=== PATIENT | female | born 1945 | race Caucasian/White ===

== ENCOUNTER 2017-10-27 11:41 | Emergency (ER) | payer MEDICARE ==
[~2017-10-27 11:41] MED LIST: ESTR0.62 VAGINAL; FLUO.25%O EACH EYE; OMEG100010 PO; REST0.05 EACH EYE; SYNT112T PO; [UNRECOGNIZED DRUG - CODE] EACH EYE
[2017-10-27 11:44] VITALS: BP 135/80; PULSE 88; RESP 14; TEMP 97.9; O2SAT 99
--- NOTE | 2017-10-27 12:23 | RADRPT ---
EXAM DATE/TIME: 10/27/2017 12:15 [facility] COMPARISON: No previous studies available for comparison. INDICATIONS : Right wrist pain; fell in a store today. MEDICAL HISTORY : None. SURGICAL HISTORY : None. ENCOUNTER: Initial ACUITY: 1 day PAIN SCORE: 4/10 LOCATION: Right wrist. FINDINGS: Three view examination of the right wrist demonstrates no soft tissue swelling, dislocation, or fract ure. The carpal bones are in normal alignment. The joint spaces are maintained. Bony mineralizatio n is normal. CONCLUSION: No acute fracture. Kevon Ag MD on October 27, 2017 at 12:20 Board Certified Radiologist. This report was verified electronically.
--- NOTE | 2017-10-27 12:51 | RADRPT ---
EXAM DATE/TIME: 10/27/2017 12:22 [facility] COMPARISON: No previous studies available for comparison. INDICATIONS : Right shoulder pain; fell in a store today over a rug. MEDICAL HISTORY : None. SURGICAL HISTORY : None. ENCOUNTER: Initial ACUITY: 1 day PAIN SCORE: 6/10 LOCATION: Right shoulder. FINDINGS: Multiple view examination of the right shoulder demonstrates no evidence of fracture or dislocation. The glenohumeral and acromioclavicular joints are anatomic. There is normal range of motion between internal and external rotation. Bony mineralization is normal. CONCLUSION: 1. No acute fracture or dislocation. Jose Daniel Connor MD on October 27, 2017 at 12:48 Board Certified Radiologist. This report was verified electronically.
--- NOTE | 2017-10-27 12:52 | RADRPT ---
EXAM DATE/TIME: 10/27/2017 12:29 [facility] COMPARISON: No previous studies available for comparison. INDICATIONS : Right hip pain; fell in a store today. MEDICAL HISTORY : None. SURGICAL HISTORY : None. ENCOUNTER: Initial ACUITY: 1 day PAIN SCORE: 4/10 LOCATION: Right hip FINDINGS: Examination of the right hip was performed with AP Pelvis. The primary and secondary trabecular lynsey joao of the femoral neck is intact. The hip joint is of normal width without significant sclerosis or bony hypertrophy. The acetabulum is grossly intact. CONCLUSION: 1. No acute fracture or dislocation. Jose Daniel Connor MD on October 27, 2017 at 12:49 Board Certified Radiologist. This report was verified electronically.
--- NOTE | 2017-10-27 12:58 | RADRPT ---
EXAM DATE/TIME: 10/27/2017 12:35 [facility] COMPARISON: No previous studies available for comparison. INDICATIONS : Right knee pain; fell in store today. MEDICAL HISTORY : None. SURGICAL HISTORY : None. ENCOUNTER: Initial ACUITY: 1 day PAIN SCORE: 6/10 LOCATION: Right knee. FINDINGS: Four view examination of the right knee demonstrates no evidence of fracture or dislocation. Bony mi neralization is normal. Mild tricompartmental degenerative osteoarthritis. Likely very small suprapat ellar joint effusion. configuration. CONCLUSION: 1. No acute fracture or dislocation. 2. Probable very small suprapatellar effusion. 3. Mild tricompartmental degenerative osteoarthritis. Jose Daniel Connor MD on October 27, 2017 at 12:55 Board Certified Radiologist. This report was verified electronically.
--- NOTE | 2017-10-27 13:11 | PD ---
HPI Chief Complaint: Injury Time Seen by Provider: 13:01 Travel History International Travel<30 days: No Contact w/Intl Traveler<30days: No Traveled to known affect area: No History of Present Illness HPI 72-year-old female presents for evaluation after a mechanical fall. She reports that this morning she slipped on a floor mat that was sliding on the floor. She tried to catch herself the right arm was unsuccessful, landing on her buttocks and also her right knee. She is complaining of some pain in her right hip, right knee, right shoulder, right wrist. Pain is mild, aggravated by movement. She has been ambulatory. Denies any other injuries and she has no other complaints at this time. [facility] Past Medical History Arthritis: Yes Diminished Hearing: No Thyroid Disease: Yes Social History Alcohol Use: No Tobacco Use: No Substance Use: No Allergies-Medications (Allergen,Severity, Reaction): Coded Allergies: triamcinolone (Unverified Allergy, Severe, Hives/ Increase heart rate, ) adhesive (Unverified Allergy, Intermediate, HIVES, 04/29/17) Sulfa (Sulfonamide Antibiotics) (Unverified Allergy, Mild, HIVES, RESP PROBLEMS, 04/29/17) latex (Unverified Allergy, Mild, HIVES, 04/29/17) Reported Meds & Prescriptions Reported Meds & Active Scripts Active Restasis Opth 0.05% (Cyclosporine Opth 0.05%) 0.05% Emul 1 Drop EACH EYE BID Reported Fml Forte Opth Drops (Fluorometholone) 0.25% Susp 1 Drop EACH EYE PRN Premarin Vaginal (Estrogens, Conjugated Vaginal) 0.625 Mg/Gm Cream 1 Gm VAGINAL Q3D [place] 3 1000 mg ([place]-3 Fatty Acids) 1 Cap Cap 1 Cap PO DAILY Synthroid (Levothyroxine Sodium) 112 Mcg Tab 112 Mcg PO DAILY Retaine Mgd Liq (Light Mineral Oil-Mineral Oil Liq) 0.5-0.5% Emul 1 Drop EACH EYE TID Review of Systems Musculoskeletal: Positive: Pain, No: Limited ROM Skin: Positive Other (denies open wounds) Physical Exam Narrative GENERAL: Well-nourished female in no acute distress SKIN: Warm and dry. HEAD: Atraumatic. Normocephalic. EYES: Pupils equal and round. No scleral icterus. No injection or drainage. CARDIOVASCULAR: Regular rate and rhythm. No murmur appreciated. RESPIRATORY: No accessory muscle use. Clear to auscultation. Breath sounds equal bilaterally. MUSCULOSKELETAL: No obvious deformities. The patient maintains full range of motion of the upper and lower extremities. There is no reproducible bony tenderness to palpation. NEUROLOGICAL: Awake and alert. No obvious cranial nerve deficits. Motor grossly within normal limits. Normal speech. Data Data Last Documented VS Vital Signs Date Time Temp Pulse Resp B/P (MAP) Pulse Ox O2 Delivery O2 Flow Rate FiO2 10/27/17 11:44 97.9 88 14 135/80 (98) 99 Orders Orders Shoulder, Complete (>2vws) (10/27/17 ) Wrist, Complete ([id number]) (10/27/17 ) Hip, Uni(Ap&Lat) W Ap Pelvis (10/27/17 ) Knee, Complete (4vws) (10/27/17 ) [facility] Medical Decision Making Medical Screen Exam Complete: Yes Emergency Medical Condition: Yes Medical Record Reviewed: Yes Differential Diagnosis Contusion, fracture, strain, sprain, tear Narrative Course X-ray imaging of the right hip, right shoulder, right knee and right wrist were obtained in triage revealing no acute bony abnormalities. Physical examination is reassuring with no range of motion limitation or point tenderness to palpation. The patient will be discharged, instructed to follow up with primary care physician in 2 weeks for recheck. Diagnosis Primary Impression: Right shoulder pain Additional Impressions: Right wrist pain Right hip pain Right knee pain Additional Instructions: Rest, avoid activities that exacerbate her pain. Follow-up with primary care physician in 2 weeks for recheck. Return for any emergent medical conditions. Med/Other Pt SpecificInfo: No Change to Meds Disposition: 01 DISCHARGE HOME Condition: Stable Mele Sierra Oct 27, 2017 13:10
== END 2017-10-27 13:23 | disposition home or self-care (01) ==
LOC: NEPK 11:41
DX: M25.511 Pain in right shoulder (principal); M25.531 Pain in right wrist; M25.551 Pain in right hip; M25.561 Pain in right knee; M19.90 Unspecified osteoarthritis, unspecified site; W01.0XXA Fall on same level from slipping, tripping and stumbling without subsequent striking against object, initial encounter; Z88.2 Allergy status to sulfonamides; Z79.899 Other long term (current) drug therapy
CPT/HCPCS: 73030; 73110; 73502; 73564; 99284